=== PATIENT | female | born 1955 | race Caucasian/White ===

== ENCOUNTER 2020-04-04 19:44 | Observation (INO) | payer MEDICARE ==
[2020-04-04] MEDS ORDERED: KETOROLAC 30 MG/ML 1 ML VIAL IVP STA (22:07)
[2020-04-04] MEDS ORDERED: PIPERACILLIN-TAZOBACTAM 3.375 GM in SODIUM CHLORIDE 0.9% 100 ML IVPB STA (22:07)
[2020-04-04 22:11] LABS: Appearance,Urine Clear (Clear); Bilirubin,Urine Negative (Negative); Blood,Urine Negative (Negative); Color,Urine Yellow; Glucose,Urine (UA) Negative (Negative); Hyaline Casts,Urine 1 /lpf (0-2); Ketones,Urine Negative (Negative); Leukocyte Esterase,Urine Small (Negative); Mucus,Urine Rare /hpf; Nitrite,Urine Negative (Negative); Protein,Urine Trace (Negative); RBC,Urine 4 /hpf (0-5); Specific Gravity,Urine 1.023 (1.001-1.035); Squamous Epithelial Cell,Urine <1 /hpf (0-4); WBC,Urine 3 /hpf (0-5)
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
[2020-04-04 22:41] LABS: Basophils % (A) 0 %; Eosinophils # (A) 0.1 k/uL (0-0.7); Eosinophils % (A) 1 %; HCT 44.8 % (34.0-46.0); Lymphocytes # (A) 1.6 k/uL (1.0-4.8); Lymphocytes % (A) 10 %; MCH 28.6 pg (25.0-35.0); MCHC 33.4 g/dL (31.0-37.0); MCV 85.6 fL (80.0-100.0); Mean Platelet Volume 8.3; Monocytes # (A) 0.6 k/uL (0-1.0); Monocytes % (A) 4 %; Neutrophils # (A) 13.7 k/uL (1.3-7.7); Neutrophils % (A) 84 %; Platelet Count 167 k/uL (150-450); RBC 5.23 m/uL (3.80-5.40); RDW 12.5 % (11.5-15.5); WBC 16.3 k/uL (3.8-10.6)
[2020-04-04 22:51] LABS: Albumin 4.2 g/dL (3.5-5.0); Calcium 9.8 mg/dL (8.4-10.2); Total Bilirubin 0.7 mg/dL (0.2-1.3); Total Protein 7.3 g/dL (6.3-8.2)
--- NOTE | 2020-04-04 22:55 | XR ---
EXAMINATION TYPE: XR foot complete RT DATE OF EXAM: 04/04/2020 COMPARISON: NONE HISTORY: Laceration TECHNIQUE: 3 views FINDINGS: Metatarsals appear intact. I see no fracture nor dislocation. There is no sign of radiopaqu e foreign body. IMPRESSION: Negative right foot exam.
[2020-04-04] MEDS ORDERED: VANCOMYCIN IV PER PHARMACY 1 EACH MISC MISCELLANE PRN (23:12)
[2020-04-04] MEDS ORDERED: VANCOMYCIN 1,000 MG in SODIUM CHLORIDE 0.9% 250 ML IVPB STA (23:14)
[2020-04-04] MEDS ORDERED: HYDROmorphone 0.5 MG/0.5 ML SYRINGE IVP PRN (23:22)
[2020-04-04] MEDS ORDERED: NALOXONE 0.4 MG/ML 1 ML VIAL IV PRN (23:22)
[2020-04-05] MEDS: HEPARIN SODIUM,PORCINE 5,000 UNIT/ML 1 ML VIAL SQ SCH ×3 (02:13→16:41)
[2020-04-05] MEDS: IBUPROFEN 400 MG TAB PO PRN ×2 (02:13→08:38)
[2020-04-05] MEDS: ACETAMINOPHEN TAB 325 MG TAB PO PRN ×2 (02:13→18:08)
[2020-04-05 06:40] LABS: Basophils % (A) 0 %; Eosinophils # (A) 0.2 k/uL (0-0.7); Eosinophils % (A) 1 %; HCT 41.3 % (34.0-46.0); Lymphocytes # (A) 2.5 k/uL (1.0-4.8); Lymphocytes % (A) 16 %; MCH 29.6 pg (25.0-35.0); MCV 87.2 fL (80.0-100.0); Mean Platelet Volume 8.7; Monocytes # (A) 0.7 k/uL (0-1.0); Monocytes % (A) 5 %; Neutrophils # (A) 12.4 k/uL (1.3-7.7); Neutrophils % (A) 77 %; Platelet Count 159 k/uL (150-450); RBC 4.74 m/uL (3.80-5.40); RDW 12.8 % (11.5-15.5); WBC 16.1 k/uL (3.8-10.6)
[2020-04-05 06:55] LABS: Calcium 9.3 mg/dL (8.4-10.2); Magnesium 2.1 mg/dL (1.6-2.3); Potassium 4.1 mmol/L (3.5-5.1)
[2020-04-05] MEDS: buPROPion XL 150 MG TAB.ER.24H PO SCH (13:07)
[2020-04-05] MEDS: LEVOTHYROXINE 75 MCG TAB PO SCH (13:07)
[2020-04-05] MEDS: FAMOTIDINE 20 MG TAB PO SCH ×2 (13:08→21:13)
[2020-04-05] MEDS: buPROPion XL 300 MG TAB.ER.24H PO SCH (13:08)
[2020-04-05] MEDS: AMPICILLIN-SULBACTAM 3 GM in SODIUM CHLORIDE 0.9% 100 ML IVPB SCH ×2 (13:29→18:07)
[2020-04-05] MEDS: VANCOMYCIN 1,000 MG in SODIUM CHLORIDE 0.9% 250 ML IVPB SCH (14:22)
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
[2020-04-05] MEDS: KETOROLAC 30 MG/ML 1 ML VIAL IVP PRN ×2 (15:20→21:13)
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
[2020-04-05] MEDS ORDERED: VANCOMYCIN 1,000 MG in SODIUM CHLORIDE 0.9% 250 ML IVPB SCH (16:00)
[2020-04-05] MEDS: SODIUM CHLORIDE 0.9% 1,000 ML IV SCH (18:08)
[2020-04-05] MEDS: LOSARTAN 25 MG TAB PO SCH (21:13)
[2020-04-05] MEDS: SERTRALINE 50 MG TAB PO SCH (21:13)
[2020-04-06] MEDS: HEPARIN SODIUM,PORCINE 5,000 UNIT/ML 1 ML VIAL SQ SCH ×4 (00:27→23:31)
[2020-04-06] MEDS: AMPICILLIN-SULBACTAM 3 GM in SODIUM CHLORIDE 0.9% 100 ML IVPB SCH ×5 (00:27→23:31)
[2020-04-06] MEDS: VANCOMYCIN 1,000 MG in SODIUM CHLORIDE 0.9% 250 ML IVPB SCH ×2 (01:53→14:35)
[2020-04-06] MEDS: KETOROLAC 30 MG/ML 1 ML VIAL IVP PRN ×4 (03:25→23:29)
[2020-04-06] MEDS: SODIUM CHLORIDE 0.9% 1,000 ML IV SCH ×2 (05:04→15:08)
[2020-04-06] MEDS: LEVOTHYROXINE 75 MCG TAB PO SCH (06:20)
[2020-04-06 06:42] LABS: Basophils % (A) 0 %; Eosinophils # (A) 0.3 k/uL (0-0.7); Eosinophils % (A) 3 %; HCT 38.2 % (34.0-46.0); HGB 13.1 gm/dL (11.4-16.0); Lymphocytes # (A) 2.4 k/uL (1.0-4.8); Lymphocytes % (A) 24 %; MCHC 34.2 g/dL (31.0-37.0); MCV 87.8 fL (80.0-100.0); Mean Platelet Volume 8.9; Monocytes # (A) 0.4 k/uL (0-1.0); Monocytes % (A) 4 %; Neutrophils # (A) 6.6 k/uL (1.3-7.7); Neutrophils % (A) 67 %; Platelet Count 172 k/uL (150-450); RBC 4.35 m/uL (3.80-5.40); RDW 12.8 % (11.5-15.5); WBC 9.8 k/uL (3.8-10.6)
[2020-04-06 07:00] LABS: African American GFR (CKD) >90 (>60 ml/min/1.73 sqM); Anion Gap 4 mmol/L; Blood Urea Nitrogen 14 mg/dL (7-17); Calcium 9.2 mg/dL (8.4-10.2); Carbon Dioxide 23 mmol/L (22-30); Chloride 116 mmol/L (98-107); Glucose 87 mg/dL (74-99); Non-African American GFR(CKD) 84 (>60 ml/min/1.73 sqM); Potassium 4.3 mmol/L (3.5-5.1); Sodium 143 mmol/L (137-145)
[2020-04-06] MEDS: buPROPion XL 150 MG TAB.ER.24H PO SCH (08:31)
[2020-04-06] MEDS: buPROPion XL 300 MG TAB.ER.24H PO SCH (08:31)
[2020-04-06] MEDS: FAMOTIDINE 20 MG TAB PO SCH ×2 (08:31→20:14)
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
[2020-04-06] MEDS: LOSARTAN 25 MG TAB PO SCH (20:15)
[2020-04-06] MEDS: SERTRALINE 50 MG TAB PO SCH (20:16)
--- NOTE | 2020-04-06 23:46 | PN ---
PROGRESS NOTE DATE OF SERVICE: 04/06/2020 REASON FOR FOLLOWUP: Right foot wound and cellulitis. INTERVAL HISTORY: The patient is currently afebrile. Patient is breathing comfortably, however, pain and discomfort to the right foot and leg is slightly decreased. No chest pain or shortness of breath or cough. No abdominal pain or diarrhea. PHYSICAL EXAMINATION: Blood pressure 146/74 with a pulse of 74, temperature 98. She is 98% on room air. General description is an elderly female lying in bed in no distress. RESPIRATORY SYSTEM: Unlabored breathing, clear to auscultation anteriorly. HEART: S1, S2. Regular rate and rhythm. ABDOMEN: Soft, no tenderness. swelling and redness has slightly decreased. LABS: Hemoglobin 13.1, white count 9.8, creatinine 0.75. Wound culture with gram-negative bacilli and Staph aureus. DIAGNOSTIC IMPRESSION AND PLAN: Patient with right foot traumatic wound with secondary cellulitis. Culture now showing Staph aureus and gram-negative. Patient is covered with Unasyn and vancomycin to continue. Adjusting antibiotic further based on the culture report. Continue supportive care. MMODL / IJN: [id number] /
[2020-04-07 00:40] VITALS: PULSE 75; RESP 18
[2020-04-07] MEDS: VANCOMYCIN 1,000 MG in SODIUM CHLORIDE 0.9% 250 ML IVPB SCH ×2 (02:09→14:26)
[2020-04-07] MEDS: LEVOTHYROXINE 75 MCG TAB PO SCH (06:14)
[2020-04-07] MEDS: AMPICILLIN-SULBACTAM 3 GM in SODIUM CHLORIDE 0.9% 100 ML IVPB SCH ×2 (06:17→12:15)
[2020-04-07 07:27] LABS: Basophils % (A) 1 %; Eosinophils # (A) 0.5 k/uL (0-0.7); Eosinophils % (A) 7 %; HCT 34.2 % (34.0-46.0); HGB 11.7 gm/dL (11.4-16.0); Lymphocytes # (A) 2.5 k/uL (1.0-4.8); Lymphocytes % (A) 37 %; MCH 29.8 pg (25.0-35.0); MCHC 34.3 g/dL (31.0-37.0); MCV 86.8 fL (80.0-100.0); Mean Platelet Volume 8.5; Monocytes # (A) 0.4 k/uL (0-1.0); Monocytes % (A) 6 %; Neutrophils # (A) 3.1 k/uL (1.3-7.7); Neutrophils % (A) 47 %; Platelet Count 154 k/uL (150-450); RBC 3.94 m/uL (3.80-5.40); RDW 12.6 % (11.5-15.5); WBC 6.6 k/uL (3.8-10.6)
[2020-04-07 07:50] LABS: African American GFR (CKD) >90 (>60 ml/min/1.73 sqM); Anion Gap 4 mmol/L; Blood Urea Nitrogen 12 mg/dL (7-17); Calcium 8.9 mg/dL (8.4-10.2); Carbon Dioxide 20 mmol/L (22-30); Chloride 118 mmol/L (98-107); Glucose 86 mg/dL (74-99); Magnesium 1.8 mg/dL (1.6-2.3); Non-African American GFR(CKD) >90 (>60 ml/min/1.73 sqM); Potassium 3.8 mmol/L (3.5-5.1); Sodium 142 mmol/L (137-145)
[2020-04-07] MEDS: HEPARIN SODIUM,PORCINE 5,000 UNIT/ML 1 ML VIAL SQ SCH (08:32)
[2020-04-07] MEDS: buPROPion XL 150 MG TAB.ER.24H PO SCH (08:32)
[2020-04-07] MEDS: FAMOTIDINE 20 MG TAB PO SCH (08:32)
[2020-04-07] MEDS: buPROPion XL 300 MG TAB.ER.24H PO SCH (08:32)
[2020-04-07 09:01] VITALS: BP 138/74; TEMP 99.1
[2020-04-07] MEDS: ACETAMINOPHEN TAB 325 MG TAB PO PRN (12:14)
[2020-04-07] MEDS ORDERED: VANCOMYCIN TROUGH DUE 1 EACH MISC MISCELLANE ONE (13:00)
--- NOTE | 2020-04-07 15:02 | PN ---
PROGRESS NOTE DATE OF SERVICE: 04/07/2020 REASON FOR FOLLOWUP: Right foot wound and cellulitis. INTERVAL HISTORY: Patient is currently afebrile. The patient is breathing comfortably. Overall pain and discomfort to the right foot denies any chest pain or cough. No abdominal pain. No diarrhea. EXAMINATION: Blood pressure 132/77 with a pulse of 75, temperature 97.1. He is 98% on room air. General description: The patient is an elderly female lying in bed in no distress. Respiratory system: Unlabored breathing, clear to auscultation anteriorly. Heart S1, S2. Regular rate and rhythm. Abdomen soft, no tenderness. Right foot swelling and redness has improved. LABS: Hemoglobin 9.4, white count 6.7. Creatinine 0.70. Wound culture finalized with Pseudomonas and MSSA. DIAGNOSTIC IMPRESSION AND PLAN: Patient with right foot wound, traumatic, with secondary cellulitis. Culture with . Antibiotic will be switched over to Keflex 500 mg p.o. q.i.d. along with Cipro b.i.d. for about 10 days and close outpatient followup in the [facility] next week. Discussed with the nurse practitioner working on discharge. MMODL / IJN: [id number] /
--- NOTE | 2020-04-08 12:12 | P.DS ---
Providers Date of admission: 04/06/20 18:44 Expected date of discharge: 04/07/20 Attending physician: Cortes Sanabria MD Consults: 04/05/20 06:53 Consult Physician Routine Consulting Provider: Shantell Rolbes Consult Reason/Comments: cellulitis Do you want consulting provider notified?: Yes Primary care physician: Elaine Willard [facility] Course: Final diagnosis -Sepsis secondary to cellulitis of the right foot -Leukocytosis: secondary to assessment as mentioned above -Hypertension -Hypothyroidism -History of hepatitis C -Depression -DVT prophylaxis -GI prophylaxis Discharge disposition Patient is being discharged in a stable condition with guarded prognosis to home. Patient will follow-up with Dr. Elaine Willard upon discharge. Patient will also follow-up with Dr. Robles in the outpatient setting. Patient will continue with a short course of oral antibiotics in the form of Cipro and Keflex for the next 10 days. Total time taken is 35 minutes. History of present illness This is an 64-year-old female who was recently admitted with laceration to the right thigh and right third toe area and was being closely monitored. Patient was initiated on oral antibiotics at a previous ER with failed outpatient therapy. Patient's infection continue to worsen on the right foot and spread up the right lower extremity. Patient was seen and evaluated by infectious disease and had cultures which finalized with Staphylococcus aureus and aeromonas veronii complex. Patient was initiated on Unasyn and Vanco upon ER presentation. Patient continued on IV antibiotics until finalization of cultures. Patient will continue on oral Keflex 500 mg 3 times daily for the next 10 days along with oral Cipro 500 mg twice daily for the next 10 days. Patient will follow-up with infectious disease in the outpatient setting. Patient instructed to continue keeping the area of the right foot elevated while at rest along with keeping the area clean and dry and may use Aquacel dressing in between the third and fourth toe while draining. Currently no reports of chest pain, shortness of breath, or palpitations. Patient is afebrile. No reports of nausea or vomiting and patient is tolerating diet. On exam vital signs are stable. Temp is 99.1F, pulse is 75, respirations are 18, blood pressure is 138/74, oxygen saturation is 98% on room air. Cardio S1, S2 are muffled. Respiratory shows diminished breath sounds at the bases with no wheezing or rhonchi noted. Abdomen is soft and non-tender. Nervous system shows no focal deficits. Please refer to medication reconciliation sheet for a list of medications. Patient Condition at Discharge: Fair Plan - Discharge Summary Discharge Rx Participant: Yes New Discharge Prescriptions: New Acetaminophen Tab [Tylenol] 650 mg PO Q6HR PRN tab PRN Reason: Mild Pain Or Fever > 100.5 Ciprofloxacin HCl [Cipro] 500 mg PO BID 10 Days #20 tab Cephalexin [Keflex] 500 mg PO Q8HR 10 Days #30 cap Continue Levothyroxine Sodium 150 mcg PO DAILY Telmisartan 10 mg PO HS Sertraline [Zoloft] 150 mg PO HS buPROPion XL [Wellbutrin XL] 300 mg PO DAILY Montelukast Sodium [Singulair] 10 mg PO HS PRN PRN Reason: Allergy Symptoms buPROPion HCL [Wellbutrin XL] 150 mg PO DAILY Discharge Medication List Levothyroxine Sodium 150 mcg PO DAILY 04/05/20 [History] Montelukast Sodium [Singulair] 10 mg PO HS PRN 04/05/20 [History] Sertraline [Zoloft] 150 mg PO HS 04/05/20 [History] Telmisartan 10 mg PO HS 04/05/20 [History] buPROPion HCL [Wellbutrin XL] 150 mg PO DAILY 04/05/20 [History] buPROPion XL [Wellbutrin XL] 300 mg PO DAILY 04/05/20 [History] Acetaminophen Tab [Tylenol] 650 mg PO Q6HR PRN tab 04/07/20 [Rx] Cephalexin [Keflex] 500 mg PO Q8HR 10 Days #30 cap 04/07/20 [Rx] Ciprofloxacin HCl [Cipro] 500 mg PO BID 10 Days #20 tab 04/07/20 [Rx] Follow up Appointment(s)/Referral(s): Elaine Willard MD [Primary Care Provider] - 1-2 days Shantell Robles MD [STAFF PHYSICIAN] - 04/14/20 11:30 am (You have a follow up appointment with Dr Robles on , April 14, 2020 at 11:30 am.) Patient Instructions/Handouts: Cellulitis (DC) Activity/Diet/Wound Care/Special Instructions: Activity Limited until follow-up Continue with wound care Dry Aquacel dressing to be changed daily follow-up with Dr. Robles in the wound care center next week call [phone] to make an appointment (, April 14, 2020 at 11:30 am) Continue to elevate the lower extremity at rest Continue with antibiotics until finished Follow-up with primary care provider upon discharge Discharge Disposition: HOME SELF-CARE
== END 2020-04-07 15:45 | disposition home or self-care (01) ==
LOC: EC 19:44 → 6PED 23:22 → INTOOBSV 04-06 18:44 → OBSVTOIN 04-06 18:44 → UNDODISIN 04-07 15:45
PROVIDERS: ADMIT Internal Medicine; ATTEND Internal Medicine
DX: A41.01 Sepsis due to Methicillin susceptible Staphylococcus aureus (principal); L03.115 Cellulitis of right lower limb; S71.111A Laceration without foreign body, right thigh, initial encounter; S91.311A Laceration without foreign body, right foot, initial encounter; I10 Essential (primary) hypertension; E03.9 Hypothyroidism, unspecified; F32.9 Major depressive disorder, single episode, unspecified; Z03.818 Encounter for observation for suspected exposure to other biological agents ruled out; Y93.19 Activity, other involving water and watercraft; W26.8XXA Contact with other sharp object(s), not elsewhere classified, initial encounter; Z79.890 Hormone replacement therapy; Z79.899 Other long term (current) drug therapy; Z98.49 Cataract extraction status, unspecified eye; Z86.19 Personal history of other infectious and parasitic diseases; Z98.890 Other specified postprocedural states; Z83.438 Family history of other disorder of lipoprotein metabolism and other lipidemia; Z82.49 Family history of ischemic heart disease and other diseases of the circulatory system; Z80.9 Family history of malignant neoplasm, unspecified
CPT/HCPCS: 96366 ×4; 96367 ×2; 96372 ×3; 96375 ×2; 96376 ×2; 96365; 99284; 36415; 80053; 80048 ×3; 82550; 83735 ×3; 85025 ×4; 80202; 81001; 87040; 87070 ×2; 87205 ×2; 87075; 87077; 87186; 84145; 73630; G0378 ×4; U0003; J2543; J3370 ×4; J1644 ×3; J1885 ×3; J0295 ×3